=== PATIENT | male | born 1940 | race Caucasian/White ===

== ENCOUNTER 2017-06-04 19:37 | Emergency (ER) | payer MEDICARE, OTHER ==
[~2017-06-04] VITALS: Ht 167.6 cm; Wt 107.0 kg
[~2017-06-04 19:37] MED LIST: ADVA250A; ALLE30TA3; ASPI81; BRIM.15%O; BUME0.5T; CALA180T; CIAL20TA; EZET10; FISH500C; IBUP-232; IRBE150T49; METF-324; OMEP20CA5; POTA-243; TAB-TAB; TRAV0.00; [UNRECOGNIZED DRUG - OTHER]
[2017-06-04 19:45] VITALS: BP 174/79; PULSE 77; RESP 18; TEMP 98.1; O2SAT 98
[2017-06-04] MEDS ORDERED: MORPHINE SULFATE 4 MG/ML INJ IV PUSH ONE (20:15)
[2017-06-04] MEDS ORDERED: ONDANSETRON HCL 4 MG/2 ML VIAL IV PUSH ONE (20:15)
--- NOTE | 2017-06-04 20:25 | PD ---
HPI Chief Complaint: Fall Time Seen by Provider: 19:53 Travel History International Travel<30 days: No Contact w/Intl Traveler<30days: No Traveled to known affect area: No History of Present Illness HPI The patient is a 76-year-old male who presents to the emergency department via EMS after a fall at home. The patient states he was at his dad at home, when he tripped over a dog dish, falling on his right side. The patient landed on his right shoulder and struck his head on the ground. The patient denies any loss of consciousness or significant headache. He does complain right shoulder pain which is worse with movement and alleviated at rest. He does have a history of significant bilateral rotator cuff injuries, but denies any fractures or dislocations to the right shoulder in the past. The patient is right-hand dominant. He denies any associated neck pain, chest pain, shortness breath, nausea, vomiting, abdominal pain, or lower extremity pain. Symptoms are mild, exacerbated after falling, and alleviated at rest. PFSH Past Medical History Asthma: Yes High Cholesterol: Yes COPD: Yes Diabetes: Yes Patient Takes Glucophage: Yes Hypertension: Yes Tetanus Vaccination: < 5 Years Past Surgical History Other Surgery: Yes (VASECTOMY) Social History Alcohol Use: Yes Tobacco Use: No Substance Use: No Allergies-Medications (Allergen,Severity, Reaction): Coded Allergies: ampicillin (Unverified Allergy, Severe, Rash, 06/04/17) Reported Meds & Prescriptions Reported Meds & Active Scripts Active Reported Aspirin 81 Mg Tab Fish Oil 500 Mg Cap Prilosec (Omeprazole) 20 Mg Capcr Travatan Z (Travoprost) 0.004 % Gil Motrin (Ibuprofen) 600 Mg Tab Avapro (Irbesartan) 150 Mg Tab Isoptin Sr (Verapamil HCl) 180 Mg Tabcr Zetia (Ezetimibe) 10 Mg Tab [Tartrate] Alphagan P (Brimonidine Tartrate) 5 Ml Soln Advair Diskus 250/50 (Salmeterol Xinafoate/Fluticasone) 250 Mcg/50 Mcg Inhp Celeste (Fexofenadine HCl) 30 Mg Tab Multivitamin (Multivitamins) 1 Tab Tab Glucophage (Metformin HCl) 1,000 Mg Tab Cialis (Tadalafil) 20 Mg Tab K-Dur (Potassium Chloride) 10 Meq Tabcr Bumex (Bumetanide) 0.5 Mg Tab Review of Systems Except as stated in HPI: all other systems reviewed are Neg HENT: No: Headaches, Neck Pain Cardiovascular: No: Chest Pain or Discomfort Respiratory: No: Shortness of Breath Gastrointestinal: No: Nausea, Vomiting, Abdominal Pain Musculoskeletal: Positive: Limited ROM, Pain Neurologic: No: Dizziness, Focal Abnormalities Physical Exam Narrative GENERAL: Awake, alert, pleasant 76-year-old male who appears his stated age and is in no acute respiratory distress. SKIN: Focused skin assessment warm/dry. HEAD: Atraumatic. Normocephalic. Small hematoma over the left frontal forehead. EYES: Pupils equal and round. No scleral icterus. No injection or drainage. ENT: No nasal bleeding or discharge. Mucous membranes pink and moist. Telangiectasias noted over the nose. NECK: Trachea midline. No JVD. CARDIOVASCULAR: Regular rate and rhythm. No murmur appreciated. RESPIRATORY: No accessory muscle use. Clear to auscultation. Breath sounds equal bilaterally. GASTROINTESTINAL: Abdomen soft, non-tender, nondistended. No rebound tenderness. MUSCULOSKELETAL: Patient has pain over the proximal right humeral area and has limited ability to abduct or extend the right shoulder. He is able flex and extend the right wrist. He is able supinate and pronate the right forearm. He is able flex and extend the right elbow. Intrinsic hand muscles are intact. Positive right radial pulse. Full range of motion of the left upper extremity and lower cherries bilateral. NEUROLOGICAL: Awake and alert. No obvious cranial nerve deficits. Motor grossly within normal limits. Normal speech. Sensation is intact with radial, median, and ulnar distribution of the right hand. PSYCHIATRIC: Appropriate mood and affect; insight and judgment normal. Data Data Last Documented VS Vital Signs Date Time Temp Pulse Resp B/P (MAP) Pulse Ox O2 Delivery O2 Flow Rate FiO2 06/04/17 19:48 76 18 98 06/04/17 19:45 98.1 174/79 (110) Orders Orders Shoulder, Complete (>2vws) (06/04/17 ) Ct Brain W/O Iv Contrast(Rout) (06/04/17 ) Morphine Inj (Morphine Inj) (06/04/17 20:15) Ondansetron Inj (Zofran Inj) (06/04/17 20:15) MDM Medical Decision Making Medical Screen Exam Complete: Yes Emergency Medical Condition: Yes Medical Record Reviewed: Yes Interpretation(s) Last Impressions Shoulder X-Ray 06/04/17 0000 Signed Impressions: Service Date/Time: Sunday, June 04, 2017 20:13 - CONCLUSION: Negative trauma study. Simba Bonilla MD Head CT 06/04/17 0000 Signed Impressions: Service Date/Time: Sunday, June 04, 2017 20:28 - CONCLUSION: 1. Soft tissue swelling over the left frontal bone with no acute fracture or hemorrhage. 2. Moderate atrophic change. Simba Bonilla MD Differential Diagnosis Differential diagnosis includes closed head injury, mechanical fall, intracranial hemorrhage, shoulder dislocation, proximal right humeral fracture, ac separation, clavicle fracture, hematoma, contusion. Narrative Course CT of the brain was obtained. X-ray of the right shoulder was obtained. The patient was administered morphine and Zofran for pain. CT the brain was unremarkable. X-ray of the right shoulder is unremarkable, no evidence of fracture or dislocation. The right upper extremity is reevaluated, I was able to passively extended and abducted, patient does have pain when he actively moves it, therefore, will be placed in a sling. The patient already takes ibuprofen for pain, I will write for hydrocodone for at night for intractable pain as necessary. He will be provided a copy of his CT results and lab results at discharge. He is advised to follow-up with his primary physician. Return if symptoms worsen or progress. Diagnosis Primary Impression: Fall Qualified Codes: W19.XXXA - Unspecified fall, initial encounter Additional Impression: Right shoulder pain Qualified Codes: M25.511 - Pain in right shoulder Patient Instructions: General Instructions Additional Instructions: Sling as directed. Ice to the right shoulder, range of motion exercises, continue ibuprofen as previously directed. Hydrocodone/acetaminophen for breakthrough pain. Please provide the patient a copy of his CT results and lab results at discharge. Follow-up with your primary physician. Med/Other Pt SpecificInfo: Prescription(s) given Scripts Hydrocodone-Acetaminophen (Opal) 5-325 mg Tab 1 TAB PO Q6H Y for PAIN, #12 TAB 0 Refills Prov: Maik Springer MD 06/04/17 Disposition: 01 DISCHARGE HOME Condition: Stable Maik Springer MD Jun 04, 2017 20:25
--- NOTE | 2017-06-04 20:35 | RADRPT ---
EXAM DATE/TIME: 06/04/2017 20:13 [facility] COMPARISON: No previous studies available for comparison. INDICATIONS : Right shoulder pain after fall today. MEDICAL HISTORY : Hypercholesterolemia. Hypertension Chronic obstructive pulmonary disease. Diabetes. SURGICAL HISTORY : Vasectomy. ENCOUNTER: Initial ACUITY: 1 day PAIN SCORE: 10/10 LOCATION: Right shoulder. FINDINGS: Multiple view examination of the right shoulder demonstrates no evidence of fracture or dislocation. The glenohumeral and acromioclavicular joints are intact mild degenerative change. There are soft ti ssue calcifications adjacent to the glenoid.. There is normal range of motion between internal and e xternal rotation. Bony mineralization is normal. CONCLUSION: Negative trauma study. Simba Bonilla MD on June 04, 2017 at 20:32 Board Certified Radiologist. This report was verified electronically.
--- NOTE | 2017-06-04 20:36 | RADRPT ---
EXAM DATE/TIME: 06/04/2017 20:28 [facility] COMPARISON: No previous studies available for comparison. INDICATIONS : Trauma; fall. RADIATION DOSE: 43.74 CTDIvol (mGy) MEDICAL HISTORY : Hypertension. Diabetes mellitus type 2. SURGICAL HISTORY : None. ENCOUNTER: Initial ACUITY: 1 day PAIN SCALE: 6/10 LOCATION: cranial TECHNIQUE: Multiple contiguous axial images were obtained of the head. Using automated exposure control and adj ustment of the mA and/or kV according to patient size, radiation dose was kept as low as reasonably a chievable to obtain optimal diagnostic quality images. DICOM format image data is available electro nically for review and comparison. FINDINGS: CEREBRUM: The ventricles are normal for age with diffuse atrophic changes. There soft tissue swelling over the left frontal bone. No evidence of midline shift, mass lesion, hemorrhage or acute infarction. No ext ra-axial fluid collections are seen. POSTERIOR FOSSA: The cerebellum and brainstem are intact. The 4th ventricle is midline. The cerebellopontine angle i s unremarkable. EXTRACRANIAL: The visualized portion of the orbits is intact. SKULL: The calvaria is intact. No evidence of skull fracture. CONCLUSION: 1. Soft tissue swelling over the left frontal bone with no acute fracture or hemorrhage. 2. Moderate atrophic change. Simba Bonilla MD on June 04, 2017 at 20:33 Board Certified Radiologist. This report was verified electronically.
[2017-06-04] MEDS ORDERED: NORC5TAB PO (21:00)
[2017-06-04 21:23] VITALS: BP 139/80; PULSE 87; RESP 18; O2SAT 96
== END 2017-06-04 21:45 | disposition home or self-care (01) ==
LOC: NEPE 19:37
DX: M25.511 Pain in right shoulder (principal); E11.9 Type 2 diabetes mellitus without complications; I10 Essential (primary) hypertension; E78.00 Pure hypercholesterolemia, unspecified; Z79.84 Long term (current) use of oral hypoglycemic drugs; Z87.09 Personal history of other diseases of the respiratory system; W01.0XXA Fall on same level from slipping, tripping and stumbling without subsequent striking against object, initial encounter; Y92.009 Unspecified place in unspecified non-institutional (private) residence as the place of occurrence of the external cause
CPT/HCPCS: 70450; 73030; 96374; 96375; 99285; J2270; J2405